=== PATIENT | male | born 1955 | race Hispanic/Latino ===

== ENCOUNTER 2022-12-20 12:47 | Inpatient (IN) | payer MEDICARE ==
[~2022-12-20] VITALS: Ht 185.4 cm; Wt 92.0 kg
[~2022-12-20 12:47] MED LIST: AMOX-427 PO; FLUT1DIS4 IH; GLIP10TA19 PO; LISI20TA24 PO; MONT-39 PO
[2022-12-20] MEDS ORDERED: ALBUTEROL 0.083% 2.5 MG/3 ML INH IH ONE ×2 (12:56→13:00)
[2022-12-20] MEDS ORDERED: SOLU-MEDROL 125MG VIAL IVP ONE (13:00)
[2022-12-20] MEDS ORDERED: FAMOTIDINE 20MG VIAL IV ONE (13:00)
[2022-12-20 13:07] LABS: BASOPHILS % (AUTO) 0.3 % (0.0-5.0); EOSINOPHILS % (AUTO) 2.6 % (0.0-8.0); HEMATOCRIT 45.3 % (42-54); LYMPHOCYTES % (AUTO) 30.9 % (21.0-51.0); MEAN CORPUSCULAR HEMOGLOBIN 31.1 pg (27.0-33.0); MEAN CORPUSCULAR HGB CONC 34.9 g/dL (32.0-36.0); MEAN CORPUSCULAR VOLUME 89.2 fL (79-99); MONOCYTES % (AUTO) 4.7 % (3.0-13.0); NEUTROPHILS % (AUTO) 60.2 % (40.0-77.0); PLATELET COUNT (AUTO) 222 K/uL (130-400); RED BLOOD CELL COUNT(AUTO) 5.08 MIL/uL (4.50-6.20); RED CELL DISTRIBUTION WIDTH 12.2 % (11.0-15.5); WHITE BLOOD COUNT (AUTO) 9.5 K/uL (4.8-10.8)
[2022-12-20 13:20] LABS: ALBUMIN 3.4 g/dL (3.5-5.0); CREATININE 1.8 mg/dL (0.5-1.5); POTASSIUM 4.4 mmol/L (3.5-5.1); TOTAL PROTEIN, SERUM 6.6 g/dL (6.0-8.3)
[2022-12-20] MEDS ORDERED: DIPHENHYDRAMINE HCL 25 MG CAPSULE PO PRN (14:00)
[2022-12-20] MEDS ORDERED: ALBUTEROL 0.083% 2.5 MG/3 ML INH IH PRN (14:00)
[2022-12-20] MEDS: SOLU-MEDROL 40MG VIAL IVP SCH ×2 (14:22→21:09)
[2022-12-20] MEDS: 0.9%NACL 1000ML 1,000 ML IV SCH (14:22)
[2022-12-20] MEDS ORDERED: ACETAMINOPHEN 325 MG TAB PO PRN (15:00)
[2022-12-20] MEDS ORDERED: ONDANSETRON 4MG INJ IVP PRN (15:00)
[2022-12-20] MEDS ORDERED: ACET-2079 PO (15:36)
[2022-12-20] MEDS: INSULIN HUMULIN R 100 UNIT/ML 3ML SQ SCH ×2 (16:13→20:34)
[2022-12-20 20:20] VITALS: BP 147/97
[2022-12-20] MEDS ORDERED: ADV500 IH (23:45)
[2022-12-20] MEDS ORDERED: ALBU90AE2 IH (23:48)
[2022-12-20] MEDS ORDERED: ASPI-1443 PO (23:50)
[2022-12-20] MEDS ORDERED: ALBU0.63 IH (23:52)
[2022-12-20] MEDS ORDERED: TRIA1TAB3 PO (23:54)
[2022-12-20] MEDS ORDERED: PRED10TA3 PO (23:55)
[2022-12-21] VITALS: BP 138/76
[2022-12-21 04:00] VITALS: BP 140/80
[2022-12-21] MEDS: 0.9%NACL 1000ML 1,000 ML IV SCH (04:04)
[2022-12-21 04:20] LABS: BASOPHILS % (AUTO) 0.1 % (0.0-5.0); HEMATOCRIT 42.5 % (42-54); LYMPHOCYTES % (AUTO) 8.3 % (21.0-51.0); MEAN CORPUSCULAR HEMOGLOBIN 30.9 pg (27.0-33.0); MEAN CORPUSCULAR HGB CONC 34.6 g/dL (32.0-36.0); MEAN CORPUSCULAR VOLUME 89.3 fL (79-99); MONOCYTES % (AUTO) 1.9 % (3.0-13.0); NEUTROPHILS % (AUTO) 89.3 % (40.0-77.0); PLATELET COUNT (AUTO) 198 K/uL (130-400); RED BLOOD CELL COUNT(AUTO) 4.76 MIL/uL (4.50-6.20); RED CELL DISTRIBUTION WIDTH 12.2 % (11.0-15.5); WHITE BLOOD COUNT (AUTO) 7.4 K/uL (4.8-10.8)
[2022-12-21 04:44] LABS: ALBUMIN 3.1 g/dL (3.5-5.0); CREATININE 1.9 mg/dL (0.5-1.5); MAGNESIUM 1.9 mg/dL (1.80-2.40); POTASSIUM 4.2 mmol/L (3.5-5.1); TOTAL PROTEIN, SERUM 6.4 g/dL (6.0-8.3)
[2022-12-21] MEDS: SOLU-MEDROL 40MG VIAL IVP SCH (06:21)
[2022-12-21] MEDS: INSULIN HUMULIN R 100 UNIT/ML 3ML SQ SCH (06:22)
[2022-12-21 07:52] VITALS: BP 143/78
[2022-12-21] MEDS ORDERED: LISINOPRIL 20 MG TABLET PO SCH (09:00)
[2022-12-21] MEDS ORDERED: FAMOTIDINE 20MG VIAL IV SCH (09:00)
[2022-12-21] MEDS ORDERED: EPIN0.3P3 IJ (10:18)
[2022-12-21 10:43] VITALS: BP 136/68
== END 2022-12-21 11:05 | disposition home or self-care (01) | DRG 915 ==
LOC: EDH 12:47 → EDHIP 13:59 → 2CV 22:41
PROVIDERS: ADMIT Hospitalist; ATTEND Hospitalist
DX: T78.2XXA Anaphylactic shock, unspecified, initial encounter (principal); E43 Unspecified severe protein-calorie malnutrition; J96.01 Acute respiratory failure with hypoxia; N17.9 Acute kidney failure, unspecified; Z20.822 Contact with and (suspected) exposure to COVID-19; T63.441A Toxic effect of venom of bees, accidental (unintentional), initial encounter; E86.0 Dehydration; E11.22 Type 2 diabetes mellitus with diabetic chronic kidney disease; E11.65 Type 2 diabetes mellitus with hyperglycemia; E78.00 Pure hypercholesterolemia, unspecified; I12.9 Hypertensive chronic kidney disease with stage 1 through stage 4 chronic kidney disease, or unspecified chronic kidney disease; J45.909 Unspecified asthma, uncomplicated; N18.9 Chronic kidney disease, unspecified; Z79.899 Other long term (current) drug therapy
CPT/HCPCS: 36415; 71045; 80053; 82550; 82948; 83036; 83735; 84484; 85025; 87635; 93005; 94640; G0378; J1815; J2920; J3490; J7030; Q0163

== ENCOUNTER → 2023-08-31 | Outpatient (CLI) | payer OTHER ==
[~2023-08-31] MED LIST changes: +ADV500 IH; +ALBU0.63 IH; +ALBU90AE2 IH; -AMOX-427 PO; +ASPI-1443 PO; +EPIN0.3P3 IJ; -FLUT1DIS4 IH; +PRED10TA3 PO; +TRIA1TAB3 PO
== END | disposition home or self-care (01) ==
LOC: RAH 12:26
DX: C61 Malignant neoplasm of prostate (principal)
CPT/HCPCS: 78306; A9503